=== PATIENT | male | born 1965 ===

== ENCOUNTER 2021-07-22 08:59 | Emergency (ER) | payer BC ==
[2021-07-22 10:25] LABS: ANION GAP 14.1 mEq/L (7-13); CHLORIDE,CL 98 mmol/L (98-107); SODIUM,NA 134 mmol/L (136-145)
[2021-07-22] MEDS ORDERED: Heparin Sodium 5,000 Units/ML Vial IVPUSH ONE (10:32)
[2021-07-22] MEDS ORDERED: Aspirin 81 MG Tab.Chew PO ONE (10:32)
[2021-07-22] MEDS ORDERED: Heparin Sodium/0.45% NaCl 25,000 UNITS/500 ML BAG IV ONE (10:33)
[2021-07-22 11:16] LABS: PTT,PARTIAL THROMBOPLSTIN TIME 25.7 SEC (22.0-34.0)
== END 2021-07-22 11:38 ==
LOC: DL.ED 08:59
DX: I21.4 Non-ST elevation (NSTEMI) myocardial infarction (principal); Z88.8 Allergy status to other drugs, medicaments and biological substances; E78.00 Pure hypercholesterolemia, unspecified; I10 Essential (primary) hypertension; E11.9 Type 2 diabetes mellitus without complications; Z72.0 Tobacco use
CPT/HCPCS: 36415; 71045; 80053; 83605; 84484; 85025; 85379; 85610; 85730; 93005; 93010; 96365; 99285; 99285-25; A9270-GY; J1644

== ENCOUNTER 2021-07-28 18:57 | Emergency (ER) | payer BC ==
[2021-07-28] MEDS ORDERED: Sodium Chloride 0.9% 10 ML Syringe FLUSH PRN (19:11)
[2021-07-28 19:35] LABS: PTT,PARTIAL THROMBOPLSTIN TIME 26.1 SEC (22.0-34.0)
[2021-07-28 19:36] LABS: ANION GAP 13.3 mEq/L (7-13)
[2021-07-28] MEDS ORDERED: Aspirin 81 MG Tab.Chew PO ONE (19:43)
[2021-07-28] MEDS ORDERED: Nitroglycerin 0.4 MG Tab.SL SL ONE (19:43)
[2021-07-28] MEDS ORDERED: Clopidogrel 75 MG Tab PO ONE (19:45)
[2021-07-28] MEDS ORDERED: Heparin Sodium 5,000 Units/ML Vial IVPUSH ONE (19:45)
[2021-07-28] MEDS ORDERED: Heparin Sodium/0.45% NaCl 25,000 UNITS/500 ML BAG IV SCH (19:45)
== END 2021-07-28 20:42 | disposition home or self-care (01) ==
LOC: DL.ED 18:57
DX: R10.83 Colic (principal); I10 Essential (primary) hypertension; E11.9 Type 2 diabetes mellitus without complications; Z88.8 Allergy status to other drugs, medicaments and biological substances
CPT/HCPCS: 36415; 71045; 80053; 82150; 83690; 84484; 85025; 85610; 85730; 93005; 93010; 99284; A9270

== ENCOUNTER 2022-11-12 05:24 | Day surgery (SDC) | payer BC ==
[2022-11-12] MEDS ORDERED: Midazolam 1 MG/ML 2 ML SDV IV ONE ×7 (05:25→06:42)
[2022-11-12] MEDS ORDERED: Dextrose 5%-0.45% NaCl 1,000 ML IV SCH (06:00)
[2022-11-12] MEDS ORDERED: fentaNYL 100 MCG/2 ML SDV ONE (06:11)
[2022-11-12] MEDS ORDERED: Midazolam 1 MG/ML 2 ML SDV ONE (06:11)
[2022-11-12] MEDS ORDERED: fentaNYL 100 MCG/2 ML SDV IV ONE ×4 (06:37→06:44)
== END 2022-11-12 08:30 | disposition home or self-care (01) ==
LOC: DL.ENDO 05:24
PROVIDERS: ATTEND Internal Medicine Gastroenterology
DX: Z12.11 Encounter for screening for malignant neoplasm of colon (principal); D12.0 Benign neoplasm of cecum; I25.10 Atherosclerotic heart disease of native coronary artery without angina pectoris; E78.5 Hyperlipidemia, unspecified; I10 Essential (primary) hypertension; E11.9 Type 2 diabetes mellitus without complications; E66.09 Other obesity due to excess calories; Z88.8 Allergy status to other drugs, medicaments and biological substances; Z80.0 Family history of malignant neoplasm of digestive organs; Z68.36 Body mass index [BMI] 36.0-36.9, adult
CPT/HCPCS: 45380; J2250; J3010; J7042